=== PATIENT | male | born 1955 | race Two or more races ===

== ENCOUNTER → 2018-02-15 | Emergency (ER) | payer OTHER ==
[~2018-02-15] VITALS: Ht 172.7 cm; Wt 99.8 kg
[~2018-02-15] MED LIST: ESKALITH300 MG PO; LAMICTAL5 MG PO; LEVAQUIN750 MG PO; LEXAPRO5 MG PO; MEDROLPACK PO; METHYLPRED4 MG/DOSE- PO; NEURONTIN300 MG PO; PROVENTIL HFA6.7 GM IH; SEROQUEL300 MG PO; ULTRACET PO; WELLBUTRIN SR150 MG PO; XANAX XR0.5 MG PO
== END | disposition home or self-care (01) ==
LOC: ER 12:39
DX: S42.255A Nondisplaced fracture of greater tuberosity of left humerus, initial encounter for closed fracture (principal); S43.015A Anterior dislocation of left humerus, initial encounter; W18.39XA Other fall on same level, initial encounter; Y93.89 Activity, other specified; Y92.098 Other place in other non-institutional residence as the place of occurrence of the external cause; Y99.8 Other external cause status

== ENCOUNTER 2018-02-18 10:02 | Outpatient (CLI) | payer OTHER | END 2018-02-18 10:37 | disposition home or self-care (01) | LOC: RAD 501 10:02 | DX: S42.252A Displaced fracture of greater tuberosity of left humerus, initial encounter for closed fracture (principal) ==

== ENCOUNTER → 2018-02-20 | Day surgery (SDC) | payer OTHER | END | disposition home or self-care (01) | LOC: CIR.AMB 06:00 | DX: S42.252A Displaced fracture of greater tuberosity of left humerus, initial encounter for closed fracture (principal); M75.122 Complete rotator cuff tear or rupture of left shoulder, not specified as traumatic; M19.012 Primary osteoarthritis, left shoulder ==

== ENCOUNTER 2018-03-02 12:39 | Outpatient (CLI) | payer OTHER | END 2018-03-02 15:42 | disposition home or self-care (01) | LOC: RAD 501 12:39 | DX: S40.012A Contusion of left shoulder, initial encounter (principal) ==

== ENCOUNTER 2018-03-04 14:13 | Outpatient (CLI) | payer OTHER | END 2018-03-04 14:30 | disposition home or self-care (01) | LOC: MRI 14:13 | DX: R42 Dizziness and giddiness (principal) | CPT/HCPCS: 70552 ==

== ENCOUNTER 2018-03-06 05:45 | Day surgery (SDC) | payer OTHER | END 2018-03-06 16:35 | disposition home or self-care (01) | LOC: CIR.AMB 05:45 | DX: S42.252D Displaced fracture of greater tuberosity of left humerus, subsequent encounter for fracture with routine healing (principal) ==

== ENCOUNTER 2018-03-23 06:00 | Day surgery (SDC) | payer OTHER | END 2018-03-23 14:45 | disposition home or self-care (01) | LOC: CIR.AMB 06:00 | DX: S42.362D Displaced segmental fracture of shaft of humerus, left arm, subsequent encounter for fracture with routine healing (principal); S43.422A Sprain of left rotator cuff capsule, initial encounter ==

== ENCOUNTER 2018-04-09 11:29 | Outpatient (CLI) | payer OTHER | END 2018-04-09 15:47 | disposition home or self-care (01) | LOC: RAD 501 11:29 | DX: M25.512 Pain in left shoulder (principal) ==

== ENCOUNTER 2018-05-14 13:59 | Outpatient (CLI) | payer OTHER | END 2018-05-14 14:08 | disposition home or self-care (01) | LOC: RAD 501 13:59 | DX: S40.012D Contusion of left shoulder, subsequent encounter (principal) ==

== ENCOUNTER → 2018-08-19 06:51 | Outpatient (CLI) | payer OTHER | END | disposition home or self-care (01) | LOC: LAB 06:51 | DX: E55.9 Vitamin D deficiency, unspecified (principal); M85.9 Disorder of bone density and structure, unspecified; E21.2 Other hyperparathyroidism; M81.8 Other osteoporosis without current pathological fracture; E56.1 Deficiency of vitamin K; E88.89 Other specified metabolic disorders; E83.42 Hypomagnesemia ==

== ENCOUNTER 2018-09-01 08:25 | Outpatient (CLI) | payer OTHER | END 2018-09-01 16:51 | disposition home or self-care (01) | LOC: TOM 08:25 | DX: N20.0 Calculus of kidney (principal) ==

== ENCOUNTER 2018-09-02 11:06 | Outpatient (CLI) | payer OTHER | END 2018-09-02 11:14 | disposition home or self-care (01) | LOC: RAD 501 11:06 | DX: S40.012D Contusion of left shoulder, subsequent encounter (principal) ==

== ENCOUNTER 2018-11-10 11:50 | Emergency (ER) | payer OTHER ==
[~2018-11-10] VITALS: Ht 172.7 cm; Wt 99.8 kg
[2018-11-10] MEDS ORDERED: TRICON CAPSULE1 EACH (12:13)
[2018-11-10] MEDS ORDERED: COZAAR25 MG (12:13)
[2018-11-10] MEDS ORDERED: LABETALOL HCL100 MG (12:13)
[2018-11-10] MEDS ORDERED: CATAPRES0.1 MG (12:13)
== END 2018-11-10 13:02 | disposition home or self-care (01) ==
LOC: ER 11:50
DX: M79.645 Pain in left finger(s) (principal)

== ENCOUNTER 2022-05-13 12:07 | Emergency (ER) | payer OTHER ==
[~2022-05-13] VITALS: Ht 172.7 cm; Wt 97.5 kg
[~2022-05-13 12:07] MED LIST changes: +CATAPRES0.1 MG; +COZAAR25 MG; +DICLOFENAC SOD100 MG PO; +LABETALOL HCL100 MG; +NORFLEX100MG PO; +TRICON CAPSULE1 EACH
[2022-05-13] MEDS ORDERED: PROZAC40 MG PO (12:52)
== END 2022-05-13 14:08 | disposition home or self-care (01) ==
LOC: ER 12:07
DX: L03.011 Cellulitis of right finger (principal); I10 Essential (primary) hypertension

== ENCOUNTER 2022-08-13 12:31 | Outpatient (CLI) | payer OTHER ==
[~2022-08-13 12:31] MED LIST changes: +PROZAC40 MG PO
== END 2022-08-13 12:41 | disposition home or self-care (01) ==
LOC: PPH VACUNA 12:31
PROVIDERS: ATTEND Emergency Medicine Pediatric Emergency Medicine
DX: Z23 Encounter for immunization (principal)

== ENCOUNTER 2023-09-23 07:19 | Outpatient (CLI) | payer OTHER | END 2023-09-23 07:25 | disposition home or self-care (01) | LOC: SONOGRAMA 07:19 | PROVIDERS: ATTEND Specialist/Technologist, Other Nephrology | DX: R10.9 Unspecified abdominal pain (principal); N18.30 Chronic kidney disease, stage 3 unspecified; R31.9 Hematuria, unspecified ==

== ENCOUNTER 2023-12-08 09:35 | Outpatient (CLI) | payer OTHER | END 2023-12-08 09:50 | disposition home or self-care (01) | LOC: SONOGRAMA 09:35 | PROVIDERS: ATTEND Internal Medicine Gastroenterology | DX: K81.9 Cholecystitis, unspecified (principal) ==

== ENCOUNTER 2023-12-25 07:13 | Outpatient (CLI) | payer OTHER | END 2023-12-25 07:14 | disposition home or self-care (01) | LOC: NUCLEAR 07:13 | PROVIDERS: ATTEND Internal Medicine Gastroenterology | DX: K81.9 Cholecystitis, unspecified (principal) | CPT/HCPCS: 78226; A9537 ==

== ENCOUNTER 2024-07-05 08:09 | Outpatient (CLI) | payer OTHER | END 2024-07-05 08:12 | disposition home or self-care (01) | LOC: MRI 08:09 | PROVIDERS: ATTEND Physical Medicine & Rehabilitation | DX: M25.561 Pain in right knee (principal) | CPT/HCPCS: 73721 ==

== ENCOUNTER 2024-09-09 05:29 | Emergency (ER) | payer OTHER ==
[~2024-09-09] VITALS: Ht 172.7 cm; Wt 102.1 kg
[~2024-09-09 05:29] MED LIST changes: +LAMICTAL5 MG; +LEXAPRO20 MG PO; +LITHIUM CARBON600 MG; +SEROQUEL200 MG; +XANAX1 MG
[2024-09-09] MEDS ORDERED: ALPRAZOLAM1 MG PO (05:42)
[2024-09-09] MEDS ORDERED: FLUOXETINE HCL40 MG PO (05:42)
[2024-09-09] MEDS ORDERED: FUROsemide 40 MG/4 ML VIAL IV STA (06:58)
[2024-09-09 07:56] LABS: MEAN CELL VOLUME 99.2 fL (80.0-100.00); MEAN CORPUSCULAR HEMOGLOBIN 33.8 pg (27.00-32.0); MEAN CORPUSCULAR HGB CONC 34.1 g/dl (32.0-36.0); PLATELET COUNT 159 K/uL (150-450); RED BLOOD COUNT 3.83 M/uL (4.00-6.00); RED CELL DISTRIBUTION WIDTH 13.5 % (11.5-14.5)
[2024-09-09 08:41] LABS: PARTIAL THROMBOPLASTIN TIME 24.7 SECONDS (22.0-34.0); PROTHROMBIN TIME 10.9 SECONDS (9.0-11.5)
[2024-09-09 08:42] LABS: ALBUMIN 3.4 gm/dL (3.4-5.0); BILIRUBIN TOTAL 0.68 mg/dL (0.3-1.2); CALCIUM 8.8 mg/dL (8.5-10.1); CREATININE SERUM 1.51 mg/dL (0.70-1.30); GFR 46.46; GLOBULINA 3.3 G/DL (2.4-3.5); POTASSIUM 3.6 mEq/L (3.5-5.1); TOTAL PROTEIN 6.7 gm/dL (6.4-8.2)
[2024-09-09 08:42] LABS: ABG PO2 65.8 mmHg (80-100); ABG pCO2 50.8 mmHg (35-45); BASE EXCESS 0.2 mmol/l; BICARBONATE 26.8 mmol/l (23-25); SaO2 91.2 %; Tco2 28.3 mmol/l
[2024-09-09] MEDS ORDERED: HYDROCHLOROTHIAZIDE 25 MG TABLET PO ONE (09:00)
[2024-09-09] MEDS ORDERED: FUROsemide 20 MG/2 ML VIAL IV STA (09:50)
[2024-09-09 10:30] LABS: allen test SATISFACTORY; o2 21 %; puncture site RADIAL LEFT
== END 2024-09-09 17:04 | disposition home or self-care (01) ==
LOC: ER 05:29
PROVIDERS: General Practice
DX: J44.9 Chronic obstructive pulmonary disease, unspecified (principal); R60.0 Localized edema; I10 Essential (primary) hypertension
CPT/HCPCS: 36415; 71045; 71250; 76604; 82803; 93005; 96365; 96366; 99284; J1940

== ENCOUNTER 2024-10-11 07:39 | Inpatient (IN) | payer OTHER ==
[~2024-10-11] VITALS: Ht 175.3 cm; Wt 81.6 kg
[~2024-10-11 07:39] MED LIST changes: +ALPRAZOLAM1 MG PO; +FLUOXETINE HCL40 MG PO; +LASIX20 MG PO; +NIFEDIPINE ER30 M1 PO
--- NOTE | 2024-10-11 07:49 | NUR ---
PACIENTE MASCULINO ALERTA Y ORIENTADO X3, REFIERE QUE HACE 3 CALDERA DEJO DE FUMAR Y HOY SE SIENTE CON TOS CON MUCOSIDAD.
[2024-10-11] MEDS ORDERED: BUDESONIDE 0.5 MG/2 ML AMPUL.NEB IH STA (08:47)
[2024-10-11] MEDS ORDERED: 0.9 % SODIUM CHLORIDE 1,000 ML IV STA (08:49)
[2024-10-11] MEDS ORDERED: ENALAPRILAT DIHYDRATE 2.5 MG/2 ML VIAL IV STA ×2 (08:50→10:43)
[2024-10-11] MEDS ORDERED: LEVALBUTEROL HCL 1.25 MG/3 ML SOLUTION IH SCH ×2 (09:00→17:49)
[2024-10-11] MEDS ORDERED: IPRATROPIUM BROMIDE 0.5 MG/2.5 ML AMPUL.NEB IH SCH ×2 (09:00→17:49)
--- NOTE | 2024-10-11 09:20 | NUR ---
SE COLECTAN MUESTRAS DE LAB POR KAVON WOLFF. SE ADMINISTRAN MEDICAMENTO NORBERTO ORDEN MEDICA. SE NOTIFICAN TERAPIAS Y ESTUDIOS ERX
[2024-10-11 09:32] LABS: HEMATOCRIT 43.8 % (39.0-48.0); HEMOGLOBIN 15.1 g/dL (13-16.00); MEAN CELL VOLUME 99.3 fL (80.0-100.00); MEAN CORPUSCULAR HEMOGLOBIN 34.3 pg (27.00-32.0); MEAN CORPUSCULAR HGB CONC 34.5 g/dl (32.0-36.0); PLATELET COUNT 145 K/uL (150-450); RED BLOOD COUNT 4.42 M/uL (4.00-6.00); RED CELL DISTRIBUTION WIDTH 14.6 % (11.5-14.5)
[2024-10-11 10:01] LABS: ALBUMIN 3.9 gm/dL (3.4-5.0); BILIRUBIN TOTAL 0.38 mg/dL (0.3-1.2); CALCIUM 9.6 mg/dL (8.5-10.1); CREATININE SERUM 1.28 mg/dL (0.70-1.30); GFR 56.05; GLOBULINA 3.8 G/DL (2.4-3.5); POTASSIUM 4.87 mEq/L (3.5-5.1); TOTAL PROTEIN 7.7 gm/dL (6.4-8.2)
[2024-10-11] MEDS ORDERED: MAGNESIUM SULFATE IN WATER 4 GM/100 ML PIGGYBACK IV STA (10:42)
--- NOTE | 2024-10-11 10:47 | NUR ---
SE RE ESTIMA PRESION ARTERIAL PARA EVALUAR EFECTO TERAPEUTICO DE MEDICAMENT LA MISMA ES DE 161/80
[2024-10-11] MEDS ORDERED: MAGNESIUM SULFATE/D5W 1GM/100ML PIGGYBAG IV ONE (11:00)
[2024-10-11] MEDS ORDERED: MAGNESIUM SULFATE IN WATER 2 GM/50 ML PIGGYBAG IV ONE (11:00)
[2024-10-11 11:16] LABS: ABG PO2 61.9 mmHg (80-100); ABG pCO2 49.2 mmHg (35-45)
[2024-10-11 11:17] LABS: BASE EXCESS 2.4 mmol/l; BICARBONATE 28.4 mmol/l (23-25); allen test SATISFACTORY; o2 21 %; puncture site RADIAL RIGHT
--- NOTE | 2024-10-11 14:02 | NUR ---
SE RE ESTIMA TEMPERATURA A PACIENTE PARA EVALUAR EFECTO TERAPEUTICO DE MEDICAMENTO.
[2024-10-11] MEDS ORDERED: FUROsemide 40 MG/4 ML VIAL IV STA (14:15)
[2024-10-11 14:33] LABS: ABG PH 7.392 (7.35-7.45); ABG PO2 63.3 mmHg (80-100); ABG pCO2 48.3 mmHg (35-45); BASE EXCESS 2.9 mmol/l; BICARBONATE 28.7 mmol/l (23-25); SaO2 91.9 %; Tco2 30.2 mmol/l; allen test SATISFACTORY; o2 21 %; puncture site RADIAL RIGHT
[2024-10-11] MEDS ORDERED: FUROsemide 20 MG/2 ML VIAL IV SCH (17:51)
[2024-10-11] MEDS ORDERED: FAMOTIDINE/PF 20 MG in 0.9 % SODIUM CHLORIDE 8 ML IV PUSH SCH (17:51)
[2024-10-11] MEDS ORDERED: METHYLPREDNISOLONE SOD SUCC 40 MG VIAL IV SCH (17:51)
[2024-10-11] MEDS ORDERED: NIFEDIPINE 30 MG TAB.SA.OSM PO SCH (17:52)
[2024-10-11] MEDS ORDERED: BENZONATATE 100 MG CAPSULE PO SCH (17:58)
[2024-10-11] MEDS ORDERED: ACETAMINOPHEN 500 MG GEL..CAP PO PRN (18:00)
[2024-10-11] MEDS ORDERED: CARVEDILOL 6.25 MG TABLET PO SCH (21:00)
[2024-10-11] MEDS ORDERED: ALPRAzolam 1 MG TABLET PO SCH (21:00)
[2024-10-11 21:31] LABS: D DIMER 0.99 MG/L; PARTIAL THROMBOPLASTIN TIME 25.7 SECONDS (22.0-34.0); PROTHROMBIN TIME 10.9 SECONDS (9.0-11.5)
[2024-10-11 22:05] LABS: URINE APPEARANCE Clear; URINE BILIRRUBIN Negative (NEGATIVE); URINE BLOOD Moderate; URINE COLOR Yellow; URINE GLUCOSE Negative (NEGATIVE); URINE KETONE Negative (NEGATIVE); URINE LEUKOCYTE Negative; URINE NITRATE Negative; URINE UROBILINOGEN 0.2 E.U./dl
[2024-10-11 22:09] LABS: URINE EPITHELIAL CELLS 2.7 uL (0.0-38.8); URINE RBC 6.7 uL (0.0-20.8)
[2024-10-11 22:12] LABS: URINE CAST 0.61 uL (0.0-1.40); URINE PROTEIN 300 (NEGATIVE)
[2024-10-12 00:15] VITALS: BP 146/83; O2SAT 90
[2024-10-12] MEDS ORDERED: LOSARTAN POTASSIUM 100 MG TABLET PO SCH (09:00)
[2024-10-12] MEDS ORDERED: PATIENTS OWN MEDICATION (MEDICAMENTO EN PISO) PO SCH ×3 (09:00)
[2024-10-12 09:10] VITALS: BP 142/92; O2SAT 95
[2024-10-12] MEDS ORDERED: BENZONATATE 200 MG CAPSULE PO SCH (13:00)
[2024-10-12] MEDS ORDERED: BENZONATATE 100 MG CAPSULE PO SCH (13:00)
[2024-10-12] MEDS ORDERED: AZITHROMYCIN 500 MG in 0.9 % SODIUM CHLORIDE 250 ML IV SCH (17:00)
[2024-10-12 17:19] VITALS: BP 158/85; O2SAT 95
[2024-10-12 22:38] VITALS: BP 152/84; O2SAT 96
[2024-10-13 01:35] VITALS: BP 151/76; O2SAT 96
[2024-10-13 09:29] VITALS: BP 160/87; O2SAT 96
[2024-10-13] MEDS ORDERED: NIFEDIPINE 60 MG TAB.SA.OSM PO SCH (14:31)
[2024-10-13] MEDS ORDERED: SODIUM CHLORIDE 0.45 % 1,000 ML IV SCH (14:45)
[2024-10-13] MEDS ORDERED: hydrALAZINE HCL 20 MG VIAL IV PRN (15:45)
[2024-10-13 17:50] VITALS: BP 190/86
[2024-10-14] MEDS ORDERED: METHYLPREDNISOLONE SOD SUCC 40 MG VIAL IV SCH (01:00)
[2024-10-14 02:10] VITALS: BP 132/81; O2SAT 95
[2024-10-14 06:51] LABS: HEMATOCRIT 42.5 % (39.0-48.0); HEMOGLOBIN 14.6 g/dL (13-16.00); MEAN CELL VOLUME 98.7 fL (80.0-100.00); MEAN CORPUSCULAR HEMOGLOBIN 33.9 pg (27.00-32.0); MEAN CORPUSCULAR HGB CONC 34.4 g/dl (32.0-36.0); PLATELET COUNT 157 K/uL (150-450); RED BLOOD COUNT 4.31 M/uL (4.00-6.00)
[2024-10-14 07:29] LABS: ALBUMIN 3.7 gm/dL (3.4-5.0); BILIRUBIN TOTAL 0.53 mg/dL (0.3-1.2); CALCIUM 8.7 mg/dL (8.5-10.1); CREATININE SERUM 1.55 mg/dL (0.70-1.30); GFR 44.95; GLOBULINA 3.4 G/DL (2.4-3.5); POTASSIUM 4.54 mEq/L (3.5-5.1); TOTAL PROTEIN 7.1 gm/dL (6.4-8.2)
[2024-10-14 09:32] LABS: URINE PROT QUANT 24HR 17.9 MG/DL
[2024-10-14 10:34] LABS: URINE PROT QUANT 24 HR 443.03 MG/24HR (42-225)
[2024-10-14 10:36] LABS: CREATINE CLEARANCE 48.6 ML/MIN (97-137); CREATININE SERUM 1.55 mg/dL (0.8-1.3)
[2024-10-14 19:19] VITALS: BP 150/90
[2024-10-15 02:52] VITALS: BP 134/78
[2024-10-15 09:36] VITALS: BP 161/110; O2SAT 94
[2024-10-15 16:59] VITALS: BP 159/96; O2SAT 94
[2024-10-15] MEDS ORDERED: IPRATROPIU0.2 MG/1 M IH (18:14)
[2024-10-15] MEDS ORDERED: XOPENEX CO1.25 MG/0. IH (18:14)
[2024-10-15] MEDS ORDERED: NIFEDIPINE ER60 MG PO (18:15)
[2024-10-15] MEDS ORDERED: CARVEDILOL6.25 MG PO (18:15)
== END 2024-10-15 19:38 | disposition home or self-care (01) | DRG 191 ==
LOC: ER 07:41 → SEC-K 18:48 → MEDI 18:48
PROVIDERS: General Practice; ADMIT Internal Medicine; ATTEND Internal Medicine
PROC: BW24ZZZ Computerized Tomography (CT Scan) of Chest and Abdomen (ICD-10-PCS; principal; 2024-10-11)
PROC: B24BZZZ Ultrasonography of Heart with Aorta (ICD-10-PCS; 2024-10-11)
PROC: BW40ZZZ Ultrasonography of Abdomen (ICD-10-PCS; 2024-10-13)
DX: J44.1 Chronic obstructive pulmonary disease with (acute) exacerbation (principal); I13.0 Hypertensive heart and chronic kidney disease with heart failure and stage 1 through stage 4 chronic kidney disease, or unspecified chronic kidney disease; N17.9 Acute kidney failure, unspecified; R09.02 Hypoxemia; I10 Essential (primary) hypertension; E66.01 Morbid (severe) obesity due to excess calories; I50.9 Heart failure, unspecified; F31.9 Bipolar disorder, unspecified; N18.30 Chronic kidney disease, stage 3 unspecified

== ENCOUNTER 2024-12-03 10:33 | Outpatient (CLI) | payer OTHER ==
[~2024-12-03 10:33] MED LIST changes: +CARVEDILOL6.25 MG PO; +IPRATROPIU0.2 MG/1 M IH; +NIFEDIPINE ER60 MG PO; +XOPENEX CO1.25 MG/0. IH
== END 2024-12-03 10:39 | disposition home or self-care (01) ==
LOC: TOM 10:33
PROVIDERS: ATTEND Internal Medicine Pulmonary Disease
DX: R06.02 Shortness of breath (principal); J43.2 Centrilobular emphysema

== ENCOUNTER 2025-04-28 08:55 | Outpatient (CLI) | payer OTHER ==
[2025-04-29] MEDS ORDERED: DICLOFENAC SOD100 MG PO (09:46)
== END 2025-04-28 09:00 | disposition home or self-care (01) ==
LOC: SONOGRAMA 08:55
PROVIDERS: ATTEND Specialist/Technologist, Other Nephrology
DX: R10.9 Unspecified abdominal pain (principal); N18.30 Chronic kidney disease, stage 3 unspecified; R31.9 Hematuria, unspecified

== ENCOUNTER 2025-04-29 10:34 | Outpatient (CLI) | payer OTHER | END 2025-04-29 10:43 | disposition home or self-care (01) | LOC: MRI 10:34 | PROVIDERS: ATTEND Physical Medicine & Rehabilitation | DX: M51.26 Other intervertebral disc displacement, lumbar region (principal); M54.16 Radiculopathy, lumbar region | CPT/HCPCS: 72148 ==

== ENCOUNTER → 2025-09-05 | Outpatient (CLI) | payer OTHER | END | disposition home or self-care (01) | LOC: MRI 08-29 10:17 | DX: M51.26 Other intervertebral disc displacement, lumbar region (principal) | CPT/HCPCS: 72149; Q9965 ==